=== PATIENT | female | born 1960 | race Caucasian/White ===

== ENCOUNTER → 2023-05-17 14:08 | Outpatient (BNVA) | payer MEDICAID, SELFPAY | PROVIDERS: PCP Nurse Practitioner Family; Visit Provider Internal Medicine | DX: M19.90 Unspecified osteoarthritis, unspecified site (principal); M53.3 Sacrococcygeal disorders, not elsewhere classified; M45.0 Ankylosing spondylitis of multiple sites in spine; M19.042 Primary osteoarthritis, left hand | CPT/HCPCS: 36415; 73100; 73120; 80053; 82550; 85025; 85651; 86140; 86200; 86431; 86480; 86704; 86803; 87340 ==

== ENCOUNTER → 2024-05-08 10:13 | Outpatient (BNVA) | payer MEDICAID, SELFPAY | PROVIDERS: PCP Nurse Practitioner Family; Visit Provider Internal Medicine Rheumatology | DX: Z79.899 Other long term (current) drug therapy (principal); M05.9 Rheumatoid arthritis with rheumatoid factor, unspecified | CPT/HCPCS: 36415; 80076; 82565; 85025; 85651; 86140 ==

== ENCOUNTER → 2025-02-04 13:47 | Outpatient (BNVA) | payer MEDICARE, OTHER, SELFPAY | PROVIDERS: PCP Nurse Practitioner Family; Visit Provider Internal Medicine Rheumatology | DX: M05.9 Rheumatoid arthritis with rheumatoid factor, unspecified (principal); M19.90 Unspecified osteoarthritis, unspecified site; Z79.899 Other long term (current) drug therapy; Z71.85 Encounter for immunization safety counseling | CPT/HCPCS: 36415; 80076; 82565; 85025; 85651; 86140; 99214 ==

== ENCOUNTER → 2025-06-19 12:52 | Outpatient (BNVA) | payer MEDICARE, OTHER, SELFPAY | PROVIDERS: PCP Nurse Practitioner Family; Visit Provider Internal Medicine Rheumatology | DX: M05.9 Rheumatoid arthritis with rheumatoid factor, unspecified (principal); M19.90 Unspecified osteoarthritis, unspecified site; Z79.899 Other long term (current) drug therapy; Z71.85 Encounter for immunization safety counseling | CPT/HCPCS: 80076; 82565; 85025; 85651; 86140; 86480; 99214 ==